=== PATIENT | female | born 1955 | race Caucasian/White ===

== ENCOUNTER 2017-07-10 08:56 | Emergency (ER) | payer OTHER ==
[~2017-07-10] VITALS: Ht 165.1 cm; Wt 74.3 kg
[2017-07-10] MEDS ORDERED: IV NORMAL SALINE 1,000ML 1,000 ML IV SCH (09:29)
[2017-07-10 09:44] LABS: BASO # 0.1 x10^3/uL (0.0-0.2); BASO % 1 % (0-3); EOS # 0.1 x10^3/uL (0.0-0.7); EOS % 1 % (0-3); HEMATOCRIT 44.9 % (36.0-47.0); HEMOGLOBIN 15.4 g/dL (12.0-15.5); LYMPH # 1.9 x10^3/uL (1.0-4.8); LYMPH % 26 % (24-48); MEAN CORPUSCULAR HEMOGLOBIN 32 pg (25-35); MEAN CORPUSCULAR HGB CONC 34 g/dL (31-37); MEAN CORPUSCULAR VOLUME 92 fL (79-100); MONO # 0.5 x10^3/uL (0.0-1.1); MONO % 6 % (0-9); NEUT % 66 % (31-73); PLATELET COUNT 316 x10^3/uL (140-400); RED BLOOD COUNT 4.86 x10^6/uL (3.50-5.40); RED CELL DISTRIBUTION WIDTH 13.2 % (11.5-14.5); WHITE BLOOD COUNT 7.6 x10^3/uL (4.0-11.0)
[2017-07-10 10:00] LABS: ALBUMIN/GLOBULIN RATIO 1.1 (1.0-1.7); CALCIUM 9.1 mg/dL (8.5-10.1); CREATININE 0.7 mg/dL (0.6-1.0); GFR 84.2; POTASSIUM 3.8 mmol/L (3.5-5.1); TOTAL BILIRUBIN 0.4 mg/dL (0.2-1.0); TOTAL PROTEIN 7.7 g/dL (6.4-8.2)
--- NOTE | 2017-07-10 10:08 | PHYS DOC ---
Adult General Chief Complaint Chief Complaint: DIZZY HPI HPI Patient is a 62-year-old female brought to the ED by her boyfriend with the complaint of vertigo. Patient states that yesterday morning when she got out of bed she "couldn't walk" due to vertigo. She feels like she is "walking to the side". She has had nausea and anorexia as well. She laid around mostly yesterday , didn't drink much fluid, but did not have vomiting. She has tried oral meclizine and Benadryl and also took a Valium that belongs to her boyfriend, none of those really helped. It did get a little better as the day went on yesterday but it still there this morning and may be worse. She has had vertigo before, states that she has gone to the ER before and they've given her something in the IV that helped her. She has seen an ENT doctor in the past, wasn't sure what they really did for her. They did prescribe "balance clinic" that she did not attend. Patient states she does have a headache this morning that she attributes to not having had any coffee. Her vertigo is described as spinning. It is worse with movement of her head or body. She has worsened with turning her head while laying down. She denies any weakness on one side of the body or the other. Patient takes only B12 daily, no other medications. She has a history of hypertension but she lost weight and has not been taking an antihypertensive for quite some time. PCP Dr. Corral Review of Systems Review of Systems Constitutional: Denies fever or chills [] Eyes: Denies change in vision HENT: Denies nasal congestion or sore throat [] Respiratory: Denies shortness of breath [] Cardiovascular: Denies chest pain GI: Positive for nausea Neurologic: Denies focal weakness Current Medications Current Medications Current Medications Medications (Trade) Dose Ordered Sig/Deejay Start Time Stop Time Status Last Admin Dose Admin Lorazepam (Ativan) 0.25 mg 1X ONCE 07/10/17 10:15 07/10/17 10:16 Ondansetron HCl (Zofran) 4 mg 1X ONCE 07/10/17 10:15 07/10/17 10:16 Sodium Chloride 1,000 ml @ 1,000 mls/hr Q1H 07/10/17 09:29 07/10/17 10:28 Allergies Allergies Allergies Coded Allergies Type Severity Reaction Last Updated Verified codeine Adverse Reaction Mild Nausea 07/10/17 Yes Physical Exam Physical Exam Constitutional: Well developed, well nourished, no acute distress, non-toxic appearance. Alert, mentating normally. Blood pressure elevated at 174/106. HENT: Normocephalic, atraumatic, bilateral external ears normal, oropharynx moist, no oral exudates, nose normal. Ears: EACs and TMs are normal bilaterally. Eyes: PERRLA, EOMI, conjunctiva normal, no discharge. [] Neck: Normal range of motion, no stridor. [] Cardiovascular:Heart rate regular rhythm, no murmur [] Lungs & Thorax: Bilateral breath sounds clear to auscultation [] Abdomen: Bowel sounds normal, soft, no tenderness, no masses, no pulsatile masses. [] Skin: Warm, dry, no erythema, no rash. [] Extremities: No tenderness, no cyanosis, no clubbing, ROM intact, no edema. [] Neurologic: Alert and oriented X 3, normal motor function, no focal deficits noted. Fabric Worker 5 over 5 and equal bilaterally. Able to elevate her legs and hold them up to the count of 5 independently. No focal findings. Current Patient Data Lab Results Laboratory Tests Test 07/10/17 09:15 White Blood Count 7.6 x10^3/uL (4.0-11.0) Red Blood Count 4.86 x10^6/uL (3.50-5.40) Hemoglobin 15.4 g/dL (12.0-15.5) Hematocrit 44.9 % (36.0-47.0) Mean Corpuscular Volume 92 fL (79-100) Mean Corpuscular Hemoglobin 32 pg (25-35) Mean Corpuscular Hemoglobin Concent 34 g/dL (31-37) Red Cell Distribution Width 13.2 % (11.5-14.5) Platelet Count 316 x10^3/uL (140-400) Neutrophils (%) (Auto) 66 % (31-73) Lymphocytes (%) (Auto) 26 % (24-48) Monocytes (%) (Auto) 6 % (0-9) Eosinophils (%) (Auto) 1 % (0-3) Basophils (%) (Auto) 1 % (0-3) Neutrophils # (Auto) 5.0 x10^3uL (1.8-7.7) Lymphocytes # (Auto) 1.9 x10^3/uL (1.0-4.8) Monocytes # (Auto) 0.5 x10^3/uL (0.0-1.1) Eosinophils # (Auto) 0.1 x10^3/uL (0.0-0.7) Basophils # (Auto) 0.1 x10^3/uL (0.0-0.2) Sodium Level 141 mmol/L (136-145) Potassium Level 3.8 mmol/L (3.5-5.1) Chloride Level 104 mmol/L (98-107) Carbon Dioxide Level 27 mmol/L (21-32) Anion Gap 10 (6-14) Blood Urea Nitrogen 13 mg/dL (7-20) Creatinine 0.7 mg/dL (0.6-1.0) Estimated GFR (Cockcroft-Gault) 84.2 BUN/Creatinine Ratio 19 (6-20) Glucose Level 99 mg/dL (70-99) Calcium Level 9.1 mg/dL (8.5-10.1) Total Bilirubin 0.4 mg/dL (0.2-1.0) Aspartate Amino Transferase (AST) 21 U/L (15-37) Alanine Aminotransferase (ALT) 31 U/L (14-59) Alkaline Phosphatase 58 U/L (46-116) Total Protein 7.7 g/dL (6.4-8.2) Albumin 4.0 g/dL (3.4-5.0) Albumin/Globulin Ratio 1.1 (1.0-1.7) EKG EKG [] Radiology/Procedures Radiology/Procedures [] Course & Med Decision Making Course & Med Decision Making Pertinent Labs and Imaging studies reviewed. (See chart for details) 62-year-old female with a history of vertigo intermittently presents to the ED with a complaint of vertigo that started yesterday morning and has not gone away. She has taken oral meclizine, Benadryl, and Valium, with some temporary relief but is still having vertigo this morning and also has nausea. She does not have focal findings on exam. Her symptoms are more consistent with labyrinthine vertigo versus central. She does have worsening with movement of her head or body. There is associated spinning. She did not have headache at the onset of the vertigo. I discussed with the patient that we will give her some IV fluids, she believe she is dehydrated because she has only drank 2 small bottles of water since just her day morning and has hardly anything. We will also try some IV Ativan. We currently do not have any IV Valium in the facility. There is a shortage. We will also give her some IV Zofran. Patient is agreeable to that plan. Patient was given a liter of fluid, Zofran, Ativan. She rested for a while and stated she felt better. She ambulated to the bathroom with ED nursing staff at her side and did not require assistance and was able to ambulate although she felt a bit unsteady. I revisited the patient. Her vertigo is clearly positional. She states that she is reluctant to move her head from side to side. We discussed her vertigo history. She has seen an ENT doctor before and I encouraged her follow up with her vertigo does not resolve in a day or 2. Her boyfriend drove her here and will drive her home. See instructions for plan. [] Dragon Disclaimer Dragon Disclaimer This electronic medical record was generated, in whole or in part, using a voice recognition dictation system. Departure Departure: Impression: Primary Impression: Benign paroxysmal positional vertigo Disposition: 01 HOME, SELF-CARE Condition: IMPROVED Referrals: KALEN CORRAL DO (PCP) Patient Instructions: Vertigo, [id number] Additional Instructions: Take meclizine every 6 hours for one or 2 days to see if that helps. Meclizine is an antihistamine and can dull your reflexes, I recommend that you do not drive while taking meclizine. If you are not improving after one or 2 days of using meclizine, see if you can get in to see your ENT doctor, you may benefit from some type of vertigo treatment maneuvers as we discussed. You might also want to try a decongestant such as [id number] oral decongestant and/or nasal spray decongestant such as Afrin Scripts Meclizine Hcl (MECLIZINE HCL) 25 Mg Tablet 1 TAB PO Q6-8HRS Y for vertigo, #30 TAB Prov: OLIVIA ALLISON MD 07/10/17 OLIVIA ALLISON MD Jul 10, 2017 10:08
[2017-07-10] MEDS ORDERED: ONDANSETRON PF 4 MG/2 ML VIAL. IV ONE (10:15)
[2017-07-10] MEDS ORDERED: LORazepam 2 MG/ML VIAL IV ONE (10:15)
[2017-07-10] MEDS ORDERED: MECL25TA3 PO (11:25)
[2017-07-10 11:31] VITALS: BP 158/112
== END 2017-07-10 11:31 | disposition home or self-care (01) ==
LOC: ER 08:56
DX: H81.10 Benign paroxysmal vertigo, unspecified ear (principal); I10 Essential (primary) hypertension; Z88.5 Allergy status to narcotic agent
CPT/HCPCS: 36415; 80053; 85025; 96361; 96374; 96375; 99284; J2060; J2405; J7030

== ENCOUNTER 2020-10-30 13:26 | Observation (INO) | payer MEDICARE, OTHER ==
[~2020-10-30] VITALS: Ht 165.1 cm; Wt 72.6 kg
[~2020-10-30 13:26] MED LIST: MECL-75 PO
--- NOTE | 2020-10-30 13:38 | PHYS DOC ---
Past History Past Medical History: Kidney Stones, Other Past Surgical History: , Oophorectomy Alcohol Use: Occasionally Drug Use: None Adult General Chief Complaint Chief Complaint: DIZZY/LIGHT HEADED HPI HPI Patient is a 65-year-old female presenting for vertigo. This is an acute on chronic issue for her. Reports she woke up this morning and after rolling over in bed noticed classic symptoms similar to prior episodes of vertigo, no falls or trauma. Reports whenever she turns her head and rotational movements and changes body position she gets an intense waves of nausea and circular type dizziness. She reports feeling lightheaded at times. Laying completely still makes better and she is asymptomatic when she does so, movements just described make worse. Patient denies any pain. Patient reports taking home meclizine, 50 mg Benadryl, and x2 Excedrin at 6 AM shortly after symptom onset without significant relief in symptoms. Patient tried staying at home but reports ongoing symptoms with movement were bothering her ability to perform activities of daily living so she presented to our ER for evaluation. Review of Systems Review of Systems Fourteen body systems of review of systems have been reviewed. See HPI for pertinent positives and negative responses, other moeller all other systems are n egative, non-pertinent or non-contributory Current Medications Current Medications Current Medications Medications (Trade) Dose Ordered Sig/Deejay Start Time Stop Time Status Last Admin Dose Admin Diazepam (Valium) 5 mg 1X ONCE 10/30/20 14:00 10/30/20 14:01 DC 10/30/20 14:29 5 MG Diphenhydramine HCl (Benadryl) 25 mg 1X ONCE 10/30/20 15:30 10/30/20 15:47 DC 10/30/20 15:46 25 MG Lactated Ringer's 1,000 ml @ 1,000 mls/hr 1X ONCE 10/30/20 15:30 10/30/20 16:29 DC 10/30/20 15:45 1,000 MLS/HR Lisinopril (Prinivil) 10 mg 1X ONCE 10/30/20 14:00 10/30/20 14:01 DC 10/30/20 14:28 10 MG Meclizine HCl (Antivert) 25 mg TID 10/30/20 21:00 UNV Prochlorperazine Edisylate (Compazine) 10 mg 1X ONCE 10/30/20 15:30 10/30/20 15:47 DC 10/30/20 15:46 10 MG Allergies Allergies Allergies Coded Allergies Type Severity Reaction Last Updated Verified codeine Adverse Reaction Mild Nausea 07/10/17 Yes Physical Exam Physical Exam Constitutional: Well developed, well nourished, no acute distress but does appear uncomfortable, non-toxic appearance. HENT: Normocephalic, atraumatic, bilateral external ears normal, bilateral middle ears without infection, oropharynx moist, no oral exudates, nose normal. Eyes: PERRLA, EOMI, conjunctiva normal, no discharge. Neck: Normal range of motion, no tenderness, supple, no stridor. Cardiovascular: Heart rate regular, sinus rhythm, no murmurs rubs or gallops Lungs & Thorax: Bilateral breath sounds clear to auscultation Abdomen: Bowel sounds normal, soft, no tenderness, no masses, no pulsatile masses. Nonsurgical abdomen, no peritoneal signs Skin: Warm, dry, no erythema, no rash. Back: No tenderness, no CVA tenderness. Extremities: No tenderness, no cyanosis, no clubbing, ROM intact, no edema. Neurologic: Alert and oriented X 3, cranial nerves II through XII intact, normal motor & sensory function, no focal deficits noted. Reproducible symptoms with rotational movement of cervical spine Psychologic: Anxious affect and mood Current Patient Data Vital Signs Vital Signs Date Time Temp Pulse Resp B/P (MAP) Pulse Ox O2 Delivery O2 Flow Rate FiO2 10/30/20 14:12 97.8 98 18 205/108 (140) 10/30/20 14:45 96 Room Air Vital Signs Date Time Temp Pulse Resp B/P (MAP) Pulse Ox O2 Delivery O2 Flow Rate FiO2 10/30/20 14:45 69 20 189/69 (109) 96 Room Air 10/30/20 14:12 97.8 Lab Results Laboratory Tests Test 10/30/20 14:37 White Blood Count 8.1 x10^3/uL Red Blood Count 4.68 x10^6/uL Hemoglobin 14.8 g/dL Hematocrit 43.9 % Mean Corpuscular Volume 94 fL Mean Corpuscular Hemoglobin 32 pg Mean Corpuscular Hemoglobin Concent 34 g/dL Red Cell Distribution Width 12.8 % Platelet Count 324 x10^3/uL Neutrophils (%) (Auto) 67 % Lymphocytes (%) (Auto) 25 % Monocytes (%) (Auto) 7 % Eosinophils (%) (Auto) 0 % Basophils (%) (Auto) 1 % Neutrophils # (Auto) 5.4 x10^3uL Lymphocytes # (Auto) 2.0 x10^3/uL Monocytes # (Auto) 0.5 x10^3/uL Eosinophils # (Auto) 0.0 x10^3/uL Basophils # (Auto) 0.1 x10^3/uL Sodium Level 146 mmol/L Potassium Level 4.0 mmol/L Chloride Level 108 mmol/L Carbon Dioxide Level 25 mmol/L Anion Gap 13 Blood Urea Nitrogen 15 mg/dL Creatinine 0.8 mg/dL Estimated GFR (Cockcroft-Gault) 71.5 Glucose Level 95 mg/dL Calcium Level 9.1 mg/dL Troponin I Quantitative < 0.017 ng/mL Current Medications Medications (Trade) Dose Ordered Sig/Deejay Route PRN Reason Start Time Stop Time Status Last Admin Dose Admin Diazepam (Valium) 5 mg 1X ONCE PO 10/30/20 14:00 10/30/20 14:01 DC 10/30/20 14:29 Lisinopril (Prinivil) 10 mg 1X ONCE PO 10/30/20 14:00 10/30/20 14:01 DC 10/30/20 14:28 Meclizine HCl (Antivert) 25 mg 1X ONCE PO 10/30/20 14:00 10/30/20 14:01 DC 10/30/20 14:28 Lactated Ringer's 1,000 ml @ 0 mls/hr 1X ONCE IV 10/30/20 15:30 10/30/20 15:30 UNV Prochlorperazine Edisylate (Compazine) 10 mg 1X ONCE IV 10/30/20 15:30 10/30/20 15:47 DC 10/30/20 15:46 Diphenhydramine HCl (Benadryl) 25 mg 1X ONCE IVP 10/30/20 15:30 10/30/20 15:47 DC 10/30/20 15:46 Lactated Ringer's 1,000 ml @ 1,000 mls/hr 1X ONCE IV 10/30/20 15:30 10/30/20 16:29 10/30/20 15:45 EKG EKG EKG ordered and interpreted by myself at 1501 hrs. as sinus rhythm at 72 bpm, unremarkable intervals, left axis deviation, no acute ischemic findings, no STEMI Radiology/Procedures Radiology/Procedures [] Heart Score C/O Chest Pain: No HEART Score for Chest Pain: HEART Score for Chest Pain Response (Comments) Value History Slighlty/Non-Suspicious 0 ECG Normal 0 Age > 65 2 Risk Factors 1 or 2 Risk Factors 1 Troponin < Normal Limit 0 Total 3 Risk Factors: Risk Factors: DM, Current or recent (<one month) smoker, HTN, HLP, family history of CAD, obesity. Risk Scores: Risk Factors: DM, Current or recent (<one month) smoker, HTN, HLP, family history of CAD, obesity. Course & Med Decision Making Course & Med Decision Making Airway patent, breathing unremarkable, IV access and vitals obtained concerning for hypertension and patient who admits to not taking home blood pressure medication this morning History and physical exam obtained, no concern for any emergent or surgical issues. NIH stroke scale 0 Comprehensive ER work-up obtained and grossly unremarkable. Discussed utility of CT head imaging but patient deferred given prior history of vertigo and similar symptoms. History of vertigo, took meclizine, Benadryl x2 and Excedrin this morning without relief. Classic symptoms of spinning when turning head and changing position. She has been nauseous Did not respond to ER intervention that included IV fluid resuscitation, meclizine, Valium, Compazine and Benadryl administration. I discussed my concern for safe discharge home given ongoing symptoms. Patient admits she typically responds to ER intervention and has never been hospitalized for this Ultimately, hospitalist contacted and case reviewed. He agreed need for admission and accepted patient under his care with instructions to give 25 mg 3 times daily meclizine and 2 mg IV Valium 3 times daily I updated patient on proposed plan of care that included hospital admission and she was amenable. All questions and concerns addressed prior to ER departure Critical Care Time This patient required critical care. Due to the fact that the patient required a significant amount of one on one physician - patient contact time, ordering and review of studies, arranging urgent treatment with development of a management plan, evaluation of patients response to treatment with frequent reassessments, and discussions with other providers this patient required 35 minutes of critical care time. Critical care time was indicated due to the inherent instability and/or potential for instability in this patient. The critical care time that is allocated to this patient is above and beyond any time spent on any other billable procedures performed on this patient. Dragon Disclaimer Dragon Disclaimer This electronic medical record was generated, in whole or in part, using a voice recognition dictation system. Departure Departure: Impression: Primary Impression: Vertigo Additional Impression: HTN (hypertension) Disposition: 09 ADMITTED INPATIENT Admitting Physician: William Brooks Condition: STABLE Referrals: KALEN ARMENDARIZ DO (PCP) Problem Qualifiers FABRIZIO GASPAR DO Oct 30, 2020 13:38
[2020-10-30] MEDS ORDERED: diazePAM 5 MG TABLET. PO ONE (14:00)
[2020-10-30] MEDS ORDERED: LISINOPRIL 10 MG TABLET PO ONE (14:00)
[2020-10-30] MEDS ORDERED: MECLIZINE 12.5 MG TABLET. PO ONE (14:00)
[2020-10-30 15:01] LABS: CALCIUM 9.1 mg/dL (8.5-10.1); CREATININE 0.8 mg/dL (0.6-1.0); GFR 71.5
[2020-10-30 15:21] LABS: BASO # 0.1 x10^3/uL (0.0-0.2); BASO % 1 % (0-3); EOS % 0 % (0-3); HEMATOCRIT 43.9 % (36.0-47.0); HEMOGLOBIN 14.8 g/dL (12.0-15.5); LYMPH % 25 % (24-48); MEAN CORPUSCULAR HEMOGLOBIN 32 pg (25-35); MEAN CORPUSCULAR HGB CONC 34 g/dL (31-37); MEAN CORPUSCULAR VOLUME 94 fL (79-100); MONO # 0.5 x10^3/uL (0.0-1.1); MONO % 7 % (0-9); NEUT # 5.4 x10^3uL (1.8-7.7); NEUT % 67 % (31-73); PLATELET COUNT 324 x10^3/uL (140-400); RED BLOOD COUNT 4.68 x10^6/uL (3.50-5.40); RED CELL DISTRIBUTION WIDTH 12.8 % (11.5-14.5); WHITE BLOOD COUNT 8.1 x10^3/uL (4.0-11.0)
--- NOTE | 2020-10-30 15:27 | EKG ---
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
[2020-10-30] MEDS ORDERED: diphenhydrAMINE 50 MG/ML VIAL IVP ONE (15:30)
[2020-10-30] MEDS ORDERED: IV RINGERS SOLUTION,LACTATED 1,000 ML IV ONE ×2 (15:30)
[2020-10-30] MEDS ORDERED: PROCHLORPERAZINE 10 MG/2 ML VIAL. IV ONE (15:30)
[2020-10-30 17:39] VITALS: BP 181/89
[2020-10-30 17:40] VITALS: BP 182/96
[2020-10-30 17:41] VITALS: BP 188/97
[2020-10-30] MEDS ORDERED: LISI-517 PO (18:08)
[2020-10-30 20:00] VITALS: BP 167/67
[2020-10-30] MEDS: MECLIZINE 12.5 MG TABLET. PO SCH (21:00)
[2020-10-30 22:59] VITALS: BP 127/70
[2020-10-31 05:42] VITALS: BP 153/81
[2020-10-31] MEDS: MECLIZINE 12.5 MG TABLET. PO SCH (08:50)
--- NOTE | 2020-10-31 10:48 | HP ---
ADMIT DATE: 10/30/2020 ATTENDING PHYSICIAN: Dr. Brooks. CHIEF COMPLAINT: Dizziness. HISTORY OF PRESENT ILLNESS: The patient is a very pleasant, active 65-year-old female with a known previous history of vertigo. She woke up the morning of admission, noticed classic symptoms of dizziness, profound inability to walk, nausea. She reported feeling lightheadedness with some headache. Movement makes it worse, being supine helps. No pain or recent COVID exposure. She was given Benadryl, Excedrin without significant relief. She is admitted then with acute exacerbation of vertigo. She was out mowing the lawn the day before. CURRENT MEDICATIONS: Include lisinopril and meclizine p.r.n. ALLERGIES: SHE HAS ALLERGIES TO CODEINE. SOCIAL HISTORY: She is a nonsmoker and nondrinker. PAST MEDICAL HISTORY: Significant for kidney stones, and oophorectomy. She occasionally drinks alcohol socially, nonsmoker. FAMILY HISTORY: Mom is still alive at age 92, in fairly good health. 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 REVIEW OF SYSTEMS: Significant for the lawn moving. No recent travel. No nausea, vomiting, diarrhea. All other systems reviewed and turned to be negative. PHYSICAL EXAMINATION: GENERAL: When I saw her, this is a pleasant, middle-aged female. INITIAL VITAL SIGNS: Showed a blood pressure 153/81, pulse is 80 and regular. She is afebrile. Oxygen saturation 95% on room air. HEENT: Head is without trauma. Pupils are reactive. Sclerae nonicteric. The oropharynx is clear. NECK: Supple. No nystagmus noted. No bruits. LUNGS: Otherwise clear. CARDIOVASCULAR: Regular heart tones. ABDOMEN: Soft. No guarding or rebound tenderness. EXTREMITIES: Without edema. NEUROLOGIC: Focally intact. She was much improved and less vertiginous. SKIN: Warm and dry. PERTINENT LABORATORY STUDIES: Admission hemoglobin 14.8 grams, white count 8100. Electrolytes within normal range. Cardiac enzymes were negative. Creatinine 0.8 mg%. ASSESSMENT: 1. A 65-year-old female with recurrent vertigo. 2. Essential hypertension. PLAN: 1. Admit, bed rest. 2. Schedule meclizine. 3. Schedule diazepam. 4. Diet as tolerated. CHANA/DANIELLE DR: CHANA/killian TID: [id number] CC: Maverick Hines
[2020-10-31 10:50] VITALS: BP 181/95
--- NOTE | 2020-10-31 14:16 | DS ---
DATE OF ADMISSION: 10/30/2020 DATE OF DISCHARGE: 10/31/2020 ATTENDING PHYSICIAN: Dr. Brooks FINAL DISCHARGE DIAGNOSES: 1. Acute vertigo. 2. Essential hypertension. 3. Mild cephalgia. HISTORY AND PHYSICAL: This is a very pleasant 65-year-old female with acute vertigo. She had been mowing the lawn. She had allergy symptoms. She has been taking [id number] Claritin-D. She was quite vertiginous, is admitted for further treatment and evaluation. PHYSICAL EXAMINATION: Please see the dictated note. PERTINENT LABORATORY AND X-RAY STUDIES: Admission hemoglobin was within normal range. Chemistry panel, electrolytes, cardiac enzymes are all negative and unremarkable. COURSE IN THE HOSPITAL: She was admitted, placed at bed rest with bathroom privileges, scheduled meclizine and diazepam. She did well. By the second hospital day, symptoms resolved. She was not nauseated. She wanted to go home, I felt this is reasonable. Work release through 11/03. I wrote a script for meclizine 25 mg p.o. t.i.d., Valium 2 mg p.o. t.i.d. as needed. In addition, I have asked her to increase her lisinopril to 10 mg p.o. daily. She will follow up with Dr. Hines at scheduled time. She was discharged then from our hospital in stable condition with explicit ____ and followup care. CHANA/MOODY/ASHLEY DR: CHANA/killian TID: [id number] CC: Maverick Hines
== END 2020-10-31 11:29 | disposition home or self-care (01) ==
LOC: ER 13:26 → INTOOBSV 16:30 → 1 SOUTH 16:30
PROVIDERS: ADMIT Hospitalist; ATTEND Hospitalist
DX: R42 Dizziness and giddiness (principal); I10 Essential (primary) hypertension; R51.9 Headache, unspecified; Z87.442 Personal history of urinary calculi; Z98.891 History of uterine scar from previous surgery; Z79.899 Other long term (current) drug therapy; Z98.890 Other specified postprocedural states
CPT/HCPCS: 36415; 80048; 84484; 85025; 93005; 96374; 96375; 99291; G0378; J0780; J1200; J7120; 96361; G0379

== ENCOUNTER → 2020-11-16 | Outpatient (CLI) | payer MEDICARE ==
[2020-10-31 10:50] VITALS: BP 181/95
[~2020-11-16] MED LIST changes: +LISI-517 PO
--- NOTE | 2020-11-16 15:41 | RAD ---
CT HEAD INDICATION: Reason: VERITGO / Spl. Instructions: / History: COMPARISON: None Available. Exposure: One or more of the following individualized dose reduction techniques were utilized for thi s examination: 1. Automated exposure control 2. Adjustment of the mA and/or kV according to patient size 3. Use of iterative reconstruction technique TECHNIQUE: 5 mm contiguous axial images were obtained from the skull base to the vertex in both bone and soft tissue algorithm. FINDINGS: No abnormal attenuation within the brain parenchyma. No evidence of acute intracranial hemorrhage. No extra-axial fluid collections. No mass effect or midline shift. Ventricular size is appropriate. Basal cisterns are patent. No fractures identified.Collins-white differentiation is preserved.Globes and orbits are within normal l imits. Moderate mucosal thickening left maxillary sinus partially visualized. IMPRESSION: 1. No acute intracranial findings. Electronically signed by: Carroll Miranda MD (11/16/2020 3:39 PM) [id number]
== END ==
LOC: CT 15:15
PROVIDERS: ATTEND Nurse Practitioner Family
DX: R42 Dizziness and giddiness (principal); J34.89 Other specified disorders of nose and nasal sinuses
CPT/HCPCS: 70450

== ENCOUNTER 2021-03-15 13:00 | Emergency (ER) | payer MEDICARE ==
[~2021-03-15] VITALS: Ht 165.1 cm; Wt 68.8 kg
[~2021-03-15 13:00] MED LIST changes: -LISI-517 PO; +LISI5TAB15 PO
--- NOTE | 2021-03-15 13:52 | EKG ---
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
[2021-03-15] MEDS ORDERED: ONDANSETRON ODT 4 MG TAB.RAPDIS ONE (13:55)
[2021-03-15] MEDS ORDERED: ONDANSETRON ODT 4 MG TAB.RAPDIS PO ONE (14:00)
[2021-03-15] MEDS: IV NORMAL SALINE 1,000ML 1,000 ML IV ONE (14:04)
[2021-03-15] MEDS: ONDANSETRON PF 4 MG/2 ML VIAL. IVP ONE (14:05)
[2021-03-15] MEDS: diazePAM 5 MG TABLET. PO ONE (14:07)
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
[2021-03-15 14:14] LABS: BASO # 0.1 x10^3/uL (0.0-0.2); BASO % 1 % (0-3); EOS # 0.1 x10^3/uL (0.0-0.7); EOS % 1 % (0-3); HEMATOCRIT 44.2 % (36.0-47.0); LYMPH # 2.4 x10^3/uL (1.0-4.8); LYMPH % 32 % (24-48); MEAN CORPUSCULAR HEMOGLOBIN 32 pg (25-35); MEAN CORPUSCULAR HGB CONC 34 g/dL (31-37); MEAN CORPUSCULAR VOLUME 93 fL (79-100); MONO # 0.5 x10^3/uL (0.0-1.1); MONO % 7 % (0-9); NEUT # 4.3 x10^3uL (1.8-7.7); NEUT % 58 % (31-73); PLATELET COUNT 383 x10^3/uL (140-400); RED BLOOD COUNT 4.75 x10^6/uL (3.50-5.40); RED CELL DISTRIBUTION WIDTH 12.7 % (11.5-14.5); WHITE BLOOD COUNT 7.3 x10^3/uL (4.0-11.0)
[2021-03-15 14:17] LABS: CALCIUM 9.5 mg/dL (8.5-10.1); CREATININE 0.8 mg/dL (0.6-1.0); GFR 71.5; POTASSIUM 3.8 mmol/L (3.5-5.1)
[2021-03-15 14:23] LABS: ALBUMIN 3.8 g/dL (3.4-5.0); TOTAL BILIRUBIN 0.4 mg/dL (0.2-1.0); TOTAL PROTEIN 7.6 g/dL (6.4-8.2)
[2021-03-15] MEDS ORDERED: ONDA4TAB12 PO (14:51)
[2021-03-15] MEDS ORDERED: DIAZ5TAB PO (14:51)
--- NOTE | 2021-03-15 15:03 | RAD ---
EXAM: AP View of the chest DATE: 03/15/2021 1:53 PM INDICATION: Reason: tachy / Spl. Instructions: / History: COMPARISON: No Prior FINDINGS: The heart is not enlarged. Mediastinal and hilar contours are normal. No focal parenchymal airspace opacity. No pleural effusion or pneumothorax. IMPRESSION: 1. No radiographic evidence for acute cardiopulmonary process. Electronically signed by: Ash Peterson MD (03/15/2021 3:00 PM) [id number]
[2021-03-15] MEDS: BUTALB/APAP/CAFEIN 50/325/40MG TABLET. PO PRN (16:10)
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
[2021-03-15 17:03] VITALS: BP 153/72
== END 2021-03-15 17:03 | disposition home or self-care (01) ==
LOC: ER 13:00
DX: H81.11 Benign paroxysmal vertigo, right ear (principal); M54.2 Cervicalgia; Z88.5 Allergy status to narcotic agent
CPT/HCPCS: 36415; 70450; 71045; 72125; 80053; 85025; 93005; 96361; 96374; 99285; J2405; J7030

== ENCOUNTER → 2021-05-01 | Outpatient (CLI) | payer MEDICARE ==
[~2021-05-01] MED LIST changes: +DIAZ5TAB PO; +ONDA4TAB12 PO
--- NOTE | 2021-05-01 17:52 | RAD ---
XR LUMBAR SPINE 2-3V History: Low back pain Comparison: None. Technique: 3 views of the lumbar spine. Findings: There are 5 non-rib bearing lumbar vertebral segments. There is no evidence of fracture. No destructive osseous lesions. Alignment is normal. Lumbar facet hypertrophy L2-L3 through L5-S1. Mild to moderate disc space narrowing L3-S1. Sacroiliac joints are unremarkable. Right pelvic surgical clips. IMPRESSION: 1. Degenerative changes in the lumbar spine without acute osseous abnormality. Electronically signed by: Sergey Camp MD (05/01/2021 5:49 PM) [facility]
== END ==
LOC: PMG 17:10
PROVIDERS: ATTEND Family Medicine
DX: M47.817 Spondylosis without myelopathy or radiculopathy, lumbosacral region (principal); M48.07 Spinal stenosis, lumbosacral region
CPT/HCPCS: 72100

== ENCOUNTER → 2021-09-22 | Outpatient (CLI) | payer MEDICARE ==
--- NOTE | 2021-09-22 13:31 | RAD ---
Right hip AP x-ray, left hip AP x-ray and AP pelvis x-ray HISTORY: Hip pain. Sciatic pain. FINDINGS: Right hip osteoarthritis with moderate to marked joint space narrowing with prominent bone spurring of the femoral head and acetabulum. Mild left hip osteoarthritic change with mild bone spurr ing of the acetabulum and mild joint space narrowing. No fracture or dislocation of the hips and pelv is. No bone lesion. Soft tissues unremarkable. IMPRESSION: No acute osseous injury. Electronically signed by: Jerzy Mcbride MD (09/22/2021 1:29 PM) [facility]
== END ==
LOC: RAD 12:51
PROVIDERS: ATTEND Nurse Practitioner Family
DX: M16.0 Bilateral primary osteoarthritis of hip (principal); M25.551 Pain in right hip; M54.30 Sciatica, unspecified side; Z68.25 Body mass index [BMI] 25.0-25.9, adult; M76.891 Other specified enthesopathies of right lower limb, excluding foot; M76.892 Other specified enthesopathies of left lower limb, excluding foot
CPT/HCPCS: 73521